=== PATIENT | female | born 1970 | race Caucasian/White ===

== ENCOUNTER 2024-03-24 19:21 | Emergency (ER) | payer SELFPAY ==
[2024-03-24 19:36] VITALS: BP 150/68; PULSE 68; RESP 16; TEMP 36.7; O2SAT 99
--- NOTE | 2024-03-24 20:35 | USR_ITS ---
PROCEDURE INFORMATION: Exam: US Abdomen, Limited; Right Upper Quadrant Exam date and time: 03/24/2024 9:50 PM Age: 53 years old Clinical indication: Abdominal pain; Other: Ruq; Additional info: Ruq pain TECHNIQUE: Imaging protocol: Real time ultrasound of the abdomen with image documentation. Limited exam focused on the right upper quadrant. COMPARISON: No relevant prior studies available. FINDINGS: Liver: Normal. No masses. Gallbladder: 10 mm diameter echogenic polyp versus adherent sludge ball in the gallbladder lumen. No internal vascularity detected. No shadowing stones are visible. Gallbladder wall thickness 3 mm. Negative for pericholecystic fluid. Biliary ducts: Common bile duct measures 7 mm diameter. Negative for intrahepatic biliary dilation. Pancreas: Visualized pancreas is unremarkable. Right kidney: Normal. No mass. No hydronephrosis. Aorta: Abdominal aorta is nonaneurysmal measuring 2.5 cm. Inferior vena cava: Patent IVC with unremarkable diameter. Portal venous: Main portal vein is patent with normal flow direction. Intraperitoneal space: Negative for intraperitoneal fluid collection. US/US gall bladder [id number] IMPRESSION: 1. No visible acute right upper quadrant abdominal pathology. 2. 10 mm gallbladder polyp versus adherent biliary sludge ball.
--- NOTE | 2024-03-24 20:44 | ED_ITS ---
HPI - Abdominal Pain 2 General: Chief Complaint: Abdominal Pain Stated Complaint: Lower abd pain Time Seen by Provider: 03/24/24 20:29 Source: patient Mode of arrival: ambulatory Limitations: no limitations History of Present Illness: Patient is a 53-year-old female presenting to the emergency department complaining of right upper quadrant pain beginning last night. Patient states she just got done eating grilled steak and corn on the cob at around 1930, when she states she had sudden onset of the pain. She notes it does extend into her back and has been associated with nausea and multiple episodes of vomiting. States she tried to eat a bowl of cereal today but just threw it right up. Still has her gallbladder and denies ever having symptoms similar to this in the past. She denies any fever, chest pain, breathing difficulties, or other symptoms at this time. No bowel changes. Has not taken anything for her pain or nausea. No other specific exacerbating or alleviating factors noted at this time, as she states it has been constant since onset. MD elicited complaint: abdominal pain Pertinent past history: none Onset (ago): day(s) Pain Consistency: constant Location: RUQ Severity: moderate Quality: sharp Radiation: back Exacerbating factors: eating Relieving factors: nothing Associated Symptoms: Reports nausea and vomiting; Denies bloating, change in stool character, chills, constipation, diarrhea, dysuria, fever(s) and hematochezia Review of Systems 2 General: Reports: 10 or more systems reviewed and unremarkable except in HPI and below Const: Reports: change in appetite; Denies: fever(s), chills, change in weight or diaphoresis ENMT: Denies: throat pain or hoarseness Card: Denies: chest pain, palpitations or lightheadedness Resp: Denies: dyspnea, productive cough or wheezing GI: Reports: abdominal pain, nausea and vomiting; Denies: diarrhea, constipation, bloating, change in stool character or hematochezia : Denies: flank pain, difficulty voiding, dysuria, urinary frequency or urinary urgency Musc: Reports: back pain; Denies: neck pain Skin/Breast: Denies: rash or new lesions Neuro: Denies: headache(s) or dizziness Physical Exam 2 Const: COMMON NORMALS: no acute distress, patient oriented x3, no limitations, healthy appearing, alert and well nourished GENERAL APPEARANCE: cooperative and comfortable NUTRITIONAL APPEARANCE: obese ORIENTATION/CONSCIOUSNESS: Y es awake HENMT: COMMON NORMALS: normocephalic, atraumatic, hearing grossly normal bilaterally, external ears normal, Normal external nose present, Normal nasal mucous membranes and turbinates present and moist oral mucous membranes HEAD & SCALP: normocephalic and atraumatic NOSE: Normal external nose present and Normal nasal mucous membranes and turbinates present EXTERNAL EAR: Yes external ears normal Eye: COMMON NORMALS: Equal, round and reactive pupils present, EOMs intact bilaterally, conjunctivae normal and normal visual ngo by confrontation C ONJUNCTIVA: Yes conjunctivae normal PUPIL: Yes Equal, round and reactive pupils present Neck/C-Spine: COMMON NORMALS: full ROM, supple, no meningeal signs and no JVD Resp: COMMON NORMALS: normal respiratory effort, No retractions, No use of accessory muscles and clear to auscultation bilaterally AUSCULTATION: clear to auscultation bilaterally, no crackles, no rales, no rhonchi and no wheezes Cardio: COMMON NORMALS: no JVD, regular rate, regular rhythm, S1 normal heart sound present, S2 normal heart sound present, No gallops present (Cardio), No clicks present (Cardio), No murmurs present (Cardio), No rub (Cardio) and Peripheral pulses 2+ throughout RATE: regular rate RHYTHM: regular rhythm HEART SOUNDS: S1 normal heart sound present and S2 normal heart sound present PERIPHERAL PULSES: Peripheral pulses 2+ throughout GI: COMMON NORMALS: Normal to inspection, nondistended, normoactive bowel sounds present, Soft to palpation, No hepatosplenomegaly present and no masses INSPECTION: Yes central obesity AUSCULTATION: Yes normoactive bowel sounds PALPATION: Yes Soft to palpation, Yes Tenderness to palpation present (GI) (Very mild right upper quadrant TTP, positive Morocho sign), No Guarding due to palpation present (GI), No Rigid due to palpation and Yes No hepatosplenomegaly present RECTAL EXAM: deferred : COMMON NORMALS: Yes no CVA tenderness BLADDER/KIDNEY EXAM: Yes no CVA tenderness Back/Pelvis: COMMON NORMALS: no CVA tenderness Extremity: COMMON NORMALS: normal to inspection and full ROM Neuro: COMMON NORMALS: patient oriented x3, moves all extremities, no focal motor deficits and no sensory deficits noted SENSORIUM/ORIENTATION: Yes alert MENINGEAL SIGNS: Yes no meningeal signs Psych: COMMON NORMALS: mental status grossly normal, cooperative and speech normal SPEECH: Yes normal speech Skin: COMMON NORMALS: no rashes or lesions noted GENERAL SKIN EXAM: no rashes or lesions noted Course 2 Vital Signs: Vital signs: Vital Signs Temperature 98.0 F 03/24/24 19:36 Pulse Rate 68 03/24/24 23:13 Respiratory Rate 18 03/24/24 21:17 Blood Pressure 104/53 03/24/24 23:13 Pulse Oximetry 92 03/24/24 23:13 Oxygen Delivery Me thod Room Air 03/24/24 23:13 MDM - Abdominal Pain Medical Decision Making Patient presented with right upper quadrant pain beginning last night after eating food. Has been constant since onset with radiation of the back and associated with nausea and vomiting after trying to eat throughout the day. Still has her gallbladder. Has not been running a fever or other systemic signs of illness. On arrival vitals were ultimately unremarkable as she was afebrile. Blood pressure slightly elevated likely secondary to pain. Physical exam found her to have a positive Morocho sign. Her initial lab work did not reveal any acute concerning findings. Urinalysis did show evidence of blood and after further investigation find out that patient is still having periods and is currently on her menstrual cycle. There was 3+ bacteria noted on urinalysis as well. Ultrasound of her right upper quadrant did not reveal any signs of acute cholecystitis, however did comment on a polyp versus biliary sludge. She was given morphine, fluids, and Zofran and upon recheck states that she felt much better. At this time she will treat with antibiotics for urinary tract infection, however the pain she is experiencing likely is secondary to biliary colic. I did inform her to avoid any exacerbating foods and to return if her pain worsens or she develops any systemic signs of illness. Otherwise she is to follow-up with primary care as needed. 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 Care of patient discussed with supervising ED physician, Dr. Aguilar, who agrees with disposition at this time. Lab Data 03/24/24 20:41 03/24/24 22:23 Labs/Radiology: Radiology Impressions Gallbladder Ultrasound 03/24/24 20:35 IMPRESSION: 1. No visible acute right upper quadrant abdominal pathology. 2. 10 mm gallbladder polyp versus adherent biliary sludge ball. Laboratory Results WBC 12.90 10^3/uL (3.29-11.43) H 03/24/24 20:41 RBC 4.66 10^6/uL (3.85-5.65) 03/24/24 20:41 Hgb 12.80 g/dL (11.27-16.99) 03/24/24 20:41 Hct 39.6 % (36-47) 03/24/24 20:41 MCV 85.0 fl (85-98) 03/24/24 20:41 MCH 27.5 pg (27-33) 03/24/24 20:41 MCHC 32.3 g/dL (30-55) 03/24/24 20:41 RDW 13.4 % (12.1-15.1) 03/24/24 20:41 Plt Count 294 10^3/cmm (157-399) 03/24/24 20:41 MPV 9.8 fL (7.4-10.4) 03/24/24 20:41 Neut % (Auto) 76.7 % 03/24/24 20:41 Lymph % (Auto) 16.4 % 03/24/24 20:41 [place] % (Auto) 5.6 % 03/24/24 20:41 Eos % (Auto) 0.6 % 03/24/24 20:41 Baso % (Auto) 0.5 % 03/24/24 20:41 Neut # (Auto) 9.89 10^3/uL (1.8-7.7) H 03/24/24 20:41 Lymph # (Auto) 2.1 10^3/uL (0.8-4.8) 03/24/24 20:41 [place] # (Auto) 0.7 10^3/uL (0.2-0.9) 03/24/24 20:41 Eos # (Auto) 0.1 10^3/uL (0.0-0.8) 03/24/24 20:41 Baso # (Auto) 0.1 10^3/uL (0.0-0.1) 03/24/24 20:41 Nucleated RBC % (auto) 0 % 03/24/24 20:41 Nucleated RBCs # 0.0 /100WBC 03/24/24 20:41 Sodium 138 mmol/L (136-145) 03/24/24 22:23 Potassium 3.6 mmol/L (3.5-5.1) 03/24/24 22:23 Chloride 102 mmol/L (98-107) 03/24/24 22:23 Carbon Dioxide 25 mmol/L (22-29) 03/24/24 22:23 Anion Gap 14.6 (5-19) 03/24/24 22:23 BUN 12 mg/dL (6-20) 03/24/24 22:23 Creatinine 0.6 mg/dL (0.5-0.9) 03/24/24 22:23 GFR Calculation 105.0 mL/min (90-130) 03/24/24 22:23 Glucose 108 mg/dL (65-115) 03/24/24 22:23 Calculated Osmolality 286 mOsm/kg (285-295) 03/24/24 22:23 Calcium 8.6 mg/dL (8.5-10.5) 03/24/24 22:23 Total Bilirubin 0.3 mg/dL (0.15-1.2) 03/24/24 22:23 AST 8 U/L (0-32) 03/24/24 22:23 ALT 7 U/L (0-33) 03/24/24 22:23 Alkaline Phosphatase 85 U/L (35-105) 03/24/24 22:23 Total Protein 6.5 g/dL (6.6-8.7) L 03/24/24 22:23 Albumin 3.6 g/dL (3.5-5.2) 03/24/24 22:23 Globulin 2.9 g/dL (1.3-4.6) 03/24/24 22:23 Lipase 30 U/L (13-60) 03/24/24 22:23 Urine Color Yellow (Yellow) 03/24/24 20:50 Urine Appearance Slightly cloudy (CLEAR) 03/24/24 20:50 Urine pH 7 (5-7) 03/24/24 20:50 Ur Specific [place] 1.010 (1.005-1.030) 03/24/24 20:50 Urine Protein Neg (Negative) 03/24/24 20:50 Urine Glucose (UA) Norm (Normal) 03/24/24 20:50 Urine Ketones 1+ (Negative) H 03/24/24 20:50 Urine Blood 3+ (Negative) H 03/24/24 20:50 Urine Nitrate Negative (Negative) 03/24/24 20:50 Urine Bilirubin Neg (Negative) 03/24/24 20:50 Urine Urobilinogen Norm mg/dL (Negative) 03/24/24 20:50 Ur Leukocyte Esterase Negative (Negative) 03/24/24 20:50 Urine RBC 5-10 /hpf (0-2) H 03/24/24 20:50 Urine WBC 10-15 /hpf (0-5) H 03/24/24 20:50 Ur Squamous Epith Cells 0-4 /hpf (0-5) H 03/24/24 20:50 Amorphous Sediment Not Reportable 03/24/24 20:50 Urine Bacteria 3+ /hpf (NONE) H 03/24/24 20:50 All radiology interpretation(s) finalized by discharge Discharge Plan Discharge Patient Disposition: Home Clinical Impression: Biliary colic, Urinary tract infection Condition: Stable Prescriptions: New ondansetron HCl 4 mg tablet 4 mg PO Q8H Qty: 30 0RF cefdinir 300 mg capsule 300 mg PO BID 10 Days Qty: 20 0RF No Action Ozempic 1 mg/dose (2 mg/1.5 mL) pen injector SUBCUT lisinopril 10 mg tablet 10 mg PO DAILY gabapentin 300 mg capsule 300 mg PO DAILY sulfamethoxazole-trimethoprim [Bactrim DS] 800-160 mg tablet 1 tab PO BID 5 Days Qty: 10 0RF Discharge Orders: Discharge ED (Routine); Ordered 03/24/24 Ordered By: Mitch Garcia Referrals: Rusty Membreno MD [Primary Care Provider] - Discharge Diet: As Directed Discharge Activity: Increase activity as tolerated Patient Instructions: Abdominal Pain (ED), Opioid Safety, Pain Management Activity Restrictions/Additional Instructions: Take cefdinir as prescribed. Zofran for nausea. Avoid any fatty or greasy foods as discussed. Drink plenty of fluids. Tylenol and ibuprofen at home for any pain. Please return if you develop any worsening of pain, high fevers, or other concerning symptoms you may have. Otherwise please follow-up with primary care. Coding Level of Care Code ED Acquisition Marketing Coordinator for Prabhu Abraham
[2024-03-24 20:53] LABS: Basophils # 0.1 10^3/uL (0.0-0.1); Basophils % 0.5 %; Eosinophils # 0.1 10^3/uL (0.0-0.8); Eosinophils % 0.6 %; Hematocrit 39.6 % (36-47); Lymphocytes # 2.1 10^3/uL (0.8-4.8); Lymphocytes % 16.4 %; Mean Corpuscular HGB Conc 32.3 g/dL (30-55); Mean Corpuscular Hemoglobin 27.5 pg (27-33); Mean Platelet Volume 9.8 fL (7.4-10.4); Monocytes # 0.7 10^3/uL (0.2-0.9); Monocytes % 5.6 %; Neutrophils # 9.89 10^3/uL (1.8-7.7); Neutrophils % 76.7 %; Nucleated Red Blood Cells % 0 %; Platelet Count 294 10^3/cmm (157-399); Red Blood Count 4.66 10^6/uL (3.85-5.65); Red Cell Distribution Width 13.4 % (12.1-15.1)
[2024-03-24] MEDS: sodium chloride 0.9% 1,000 ML 999 ML IV (21:11)
[2024-03-24] MEDS: ondansetron 2 mg/ML SDV 2 mL 4 MG IVP (21:12)
[2024-03-24 21:13] VITALS: RESP 18; O2SAT 97
[2024-03-24] MEDS: morphine 4 mg/mL SDV 1 mL IVP (21:13)
[2024-03-24 21:17] VITALS: BP 136/69; PULSE 60; RESP 18; O2SAT 96
[2024-03-24 21:28] LABS: Urine Appearance Slightly Cloudy (CLEAR); Urine Color Yellow (Yellow); pH Urine 7 (5-7)
[2024-03-24 21:29] LABS: Add Urine Culture? Yes; Add Urine Microscopic? YES; Bacteria Urine 3+ /hpf; Bilirubin Urine Neg (Negative); Blood Urine 3+ (Negative); Glucose Urine UA Norm (Normal); Ketones Urine 1+ (Negative); Leukocyte Esterase Urine Negative (Negative); Nitrate Urine Negative (Negative); Protein Urine Neg (Negative); Squamous Epithelial Cell Urine 0-4 /hpf (0-5); Urobilinogen Urine Norm (Negative)
[2024-03-24 22:54] LABS: Alanine Aminotransferase 7 U/L (0-33); Albumin Level 3.6 g/dL (3.5-5.2); Alkaline Phosphatase 85 U/L (35-105); Anion Gap 14.6 (5-19); Aspartate Amino Transferase 8 U/L (0-32); Blood Urea Nitrogen 12 mg/dL (6-20); Calcium 8.6 mg/dL (8.5-10.5); Carbon Dioxide 25 mmol/L (22-29); Chloride 102 mmol/L (98-107); Creatinine Clr Calc Pharmacy 125.2464; Globulin 2.9 g/dL (1.3-4.6); Glucose 108 mg/dL (65-115); Lipase 30 U/L (13-60); Osmolality Calculated 286 mOsm/kg (285-295); Potassium 3.6 mmol/L (3.5-5.1); Sodium 138 mmol/L (136-145); Total Bilirubin 0.3 mg/dL (0.15-1.2); Total Protein 6.5 g/dL (6.6-8.7)
[2024-03-24 23:13] VITALS: BP 104/53; PULSE 68; O2SAT 92
[2024-03-25] MEDS: ondansetron 2 mg/ML SDV 2 mL 4 MG IVP (00:03)
[2024-03-25] MEDS: cefdinir 300 MG CAPSULE PO (00:03)
[2024-03-25 00:07] VITALS: BP 105/85; PULSE 69; RESP 16; O2SAT 98
== END 2024-03-25 | disposition home or self-care (01) ==
PROVIDERS: Emergency Medicine; Emergency Provider Physician Assistant; PCP Family Medicine
DX: K80.50 Calculus of bile duct without cholangitis or cholecystitis without obstruction (principal); N39.0 Urinary tract infection, site not specified; Z79.85 Long-term (current) use of injectable non-insulin antidiabetic drugs
CPT/HCPCS: 36415; 76705; 80053; 81001; 83690; 85025; 87077; 87086; 87186; 96374; 96375; 96376; 99284; J2270; J2405; J7030